=== PATIENT | male | born 1955 | race Caucasian/White ===

== ENCOUNTER → 2017-02-10 | Outpatient (CLI) | payer OTHER ==
[~2017-02-10] MED LIST: IBUP-1027 PO
[2017-02-10 09:49] LABS: CALCIUM 9.1 mg/dL (8.5-10.1); GFR 76.2; POTASSIUM 4.4 mmol/L (3.5-5.1)
[2017-02-10 10:01] LABS: BASO # 0.1 x10^3/uL (0.0-0.2); BASO % 1 % (0-3); EOS % 2 % (0-3); HEMATOCRIT 45.7 % (39.0-53.0); HEMOGLOBIN 15.3 g/dL (13.0-17.5); LYMPH # 2.2 x10^3/uL (1.0-4.8); LYMPH % 30 % (24-48); MEAN CORPUSCULAR HEMOGLOBIN 29 pg (25-35); MEAN CORPUSCULAR HGB CONC 33 g/dL (31-37); MEAN CORPUSCULAR VOLUME 86 fL (79-100); MONO % 10 % (0-9); NEUT % 58 % (31-73); PLATELET COUNT 220 x10^3/uL (140-400); RED BLOOD COUNT 5.32 x10^6/uL (4.30-5.70); RED CELL DISTRIBUTION WIDTH 13.9 % (11.5-14.5); WHITE BLOOD COUNT 7.6 x10^3/uL (4.0-11.0)
[2017-02-10 10:18] LABS: INR 1.1 (0.8-1.1); PROTHROMBIN TIME PATIENT 13.7 SEC (11.7-14.0)
[2017-02-10 11:02] LABS: BILIRUBIN,URINE NEGATIVE (NEG); GLUCOSE,URINE NEGATIVE (NEG); NITRITE,URINE NEGATIVE (NEG); PH,URINE 5.5; PROTEIN,URINE 30 mg/dL (NEG-TRACE); UROBILINOGEN,URINE 0.2 mg/dL (0.2 mg/dL)
[2017-02-10 11:14] LABS: BACTERIA,URINE 0 /HPF (0-FEW); RBC,URINE 0 /HPF (0-2); WBC,URINE 0 /HPF (0-4)
--- NOTE | 2017-02-10 12:34 | EKG ---
[facility] [address] [place] [address] Test Date: 2017-02-10 Test Time: 12:23:21 Pat Name: BIN VELOZ Department: Room: Gender: M Puncher: JOSUÉ : 1955 Requested By: MATY BREEN Order Number: [id number] Reading MD: Becky Chan Measurements Intervals Novelty Rate: 50 P: 37 VT: 170 QRS: 24 QRSD: 88 T: -6 QT: 444 QTc: 407 Interpretive Statements SINUS RHYTHM INCOMPLETE RIGHT BUNDLE BRANCH BLOCK T ABNORMALITY IN INFERIOR LEADS ABNORMAL ECG Electronically Signed On 02-11-2017 12:13:05 CDT by Becky Chan
--- NOTE | 2017-02-10 13:50 | RAD ---
Indication preop. Anticipated knee replacement. Protocol study. Frontal and lateral views of the chest were obtained. No prior imaging is available. Inspiratory effort is slightly suboptimal. This may be a function of patient body habitus. Heart size, given the level of inspiratory effort, is within normal limits. Acute parenchymal infiltrate is not seen. Significant pleural fluid is not present and there is no pneumothorax. IMPRESSION: No acute finding apparent in the chest
== END | disposition home or self-care (01) ==
LOC: SURGPAT 13:25
PROVIDERS: ATTEND Orthopaedic Surgery
DX: Z01.818 Encounter for other preprocedural examination (principal); R79.89 Other specified abnormal findings of blood chemistry
CPT/HCPCS: 36415; 71020; 80048; 81001; 82040; 85025; 85610; 85651; 85730; 87641; 93005

== ENCOUNTER 2017-03-03 05:32 | Inpatient (IN) | payer OTHER ==
--- NOTE | 2017-03-02 13:37 | PDOC1 ---
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 He has a history of medial meniscectomy in March [address] Parson in [place]. He states he was doing well until he fell down the stairs in June and has had progressively worsening pain since then, which he describes as a dull ache with intermittent sharp pains. Past Medical History Past Medical History groin infection Past Surgical History Past Surgical History right knee scope with medial meniscectomy 03/2016 Family History Family History: No Significant Social History Smoke: No ALCOHOL: none Drugs: None Current Medications Current Medications Current Medications Morphine Sulfate 5 mg/Ketorolac Tromethamine 30 mg/Ropivacaine 60 ml/ Epinephrine HCl 0.5 mg/Sodium Chloride 100 ml @ 100 mls/hr 1X PERIOP ONCE INT ART ; Start 03/03/17 at 06:00; Stop 03/03/17 at 06:59 Ondansetron HCl (Zofran) 4 mg PRN Q6HRS PRN IV NAUSEA/VOMITING; Start 03/03/17 at 07:00; Stop 03/04/17 at 06:59 Fentanyl Citrate (Fentanyl 2ml Vial) 25 mcg PRN Q5MIN PRN IV MILD PAIN; Start 03/03/17 at 07:00; Stop 03/04/17 at 06:59 Fentanyl Citrate (Fentanyl 2ml Vial) 50 mcg PRN Q5MIN PRN IV MODERATE PAIN; Start 03/03/17 at 07:00; Stop 03/04/17 at 06:59 Morphine Sulfate 1 mg PRN Q10MIN PRN IV SEVERE PAIN; Start 03/03/17 at 07:00; Stop 03/04/17 at 06:59 Ringer's Solution 1,000 ml @ 30 mls/hr Q24H IV ; Start 03/03/17 at 07:00; Stop 03/03/17 at 18:59 Lidocaine HCl (Xylocaine-Mpf 1% Vial) 2 ml PRN 1X PRN ID IV START; Start at 07:00; Stop 03/04/17 at 06:59 Hydromorphone HCl (Dilaudid) 0.5 mg PRN Q10MIN PRN IV SEV PAIN, Second choice; Start 03/03/17 at 07:00; Stop 03/04/17 at 06:59 Prochlorperazine Edisylate (Compazine) 5 mg PACU PRN PRN IV NAUSEA, MRX1; Start 03/03/17 at 07:00; Stop 03/04/17 at 06:59 Active Scripts Active Reported Ibuprofen 400 Mg Tablet 400 Mg PO PRN Q6HRS PRN Allergies Allergies: Coded Allergies: Penicillins (Verified Allergy, Intermediate, Unknown, 02/06/17) Physical Exam General: Alert, Oriented X3, Cooperative, No acute distress HEENT: Atraumatic, EOMI Lungs: Normal air movement Heart: RRR Abdomen: Soft Extremities: No clubbing, No cyanosis, Normal pulses, Other (RIGHT KNEE: mildly antalgic gait. There is trace varus alignment. No masses. No detectable effusion. Tenderness on the medial and lateral joint lines. Range of motion is 5 -115 degrees. There is crepitus with range of motion, and pain at the extremes of motion. The knee is stable to varus and valgus stress without subluxation or laxity. Muscle strength is normal (5/5) for quadriceps and hamstrings, and muscle tone is normal. The skin is normal with no scars, rashes, lesions or ulcers. Light touch sensation is intact. No edema and no varicosities. Dorsalis pedis pulse is intact and capillary refill is normalLEFT KNEE: trace varus alignment. no masses and no effusion. No tenderness to palpation. Range of motion is 0-125 degrees, without crepitus or pain at the extremes of motion. The knee is stable to varus and valgus stress without subluxation or laxity. Muscle strength is normal (5/5) for quadriceps and hamstrings, and muscle tone is normal. The skin is normal with no scars, rashes, lesions or ulcers. Light touch sensation is intact. No edema and no varicosities. Dorsalis pedis pulse is intact and capillary refill is normal. ) Skin: No rashes, No breakdown, No significant lesion Neuro: Normal speech, Sensation intact Psych/Mental Status: Mental status NL, Mood NL Images Images IMAGING REPORT Joint survey, hips knees and ankles Clinical information: Preoperative for total knee arthroplasty Comparison: None. Findings Bones: The angle between the right hip-ankle mechanical axis and the femoral shaft is 5. The angle between the left hip-ankle mechanical axis and the femoral shaft is 5 . The mechanical axis crosses medial to the center of the right knee indicating varus alignment. The mechanical axis slightly medial to the center of the left knee indicating proper mechanical alignment. Joints: There is narrowing of the right knee joint medially. The left knee joint appears normal. The hips and ankles show minimal degenerative changes. Soft tissue: Normal. Impression: Varus alignment of the right knee and left knee. The difference between the mechanical axis and femoral shaft anatomic axis is 5 bilaterally. IMAGING REPORT 45 PA weightbearing view of both knees, lateral, and patella view of the right knee. Clinical information: Chronic right knee pain. Her arthroscopy. Comparison: None. Findings Bones: There is medial joint space narrowing of the right knee with osteophytic lipping. These are Kellgren David grade 2 osteoarthritis changes of the right knee. The left knee has doubtful narrowing or lipping. Joints: Medial joint space narrowing right knee Soft tissue: Normal. Impression: Osteoarthritis of the right knee, mild/moderate VTE Prophylaxis Ordered VTE Prophylaxis Devices: Yes VTE Pharmacological Prophylaxi: Yes Assessment/Plan Assessment/Plan Right knee osteoarthritis pain. Based on his symptoms Dr. Phillips thinks that total knee replacement would give him a better outcome than arthroscopic surgery. We discussed the potential risks of infection, neurovascular injury, bleeding, blood clots, need for revision surgery, or other potential surgical or anesthetic complications. He would like to proceed with surgery in February. ALEXANDER MACHADO Mar 02, 2017 13:37
[~2017-03-03] VITALS: Ht 180.3 cm; Wt 119.3 kg
[2017-03-03] VITALS (8 sets, daily range): BP systolic 95–140; BP diastolic 51–78
[2017-03-03] MEDS ORDERED: CLINDAMYCIN 900MG PREMIX 50 ML IV PRN (06:00)
[2017-03-03] MEDS ORDERED: HYDROcodone/APAP 7.5/325MG 1 TAB TABLET PO PRN ×2 (06:00→10:00)
[2017-03-03] MEDS ORDERED: TRANEXAMIC ACID 1,000 MG in IV NS 50ML -- 1ST BAG INJ ONE (06:00)
[2017-03-03] MEDS ORDERED: MORPHINE SULFATE 5 MG, KETOROLAC 30 MG, ROPIVacaine 0.5% PF 60 ML, EPINEPHrine 0.5 MG i... INT ART ONE ×5 (06:00)
[2017-03-03] MEDS ORDERED: CELECOXIB 200 MG CAPSULE. PO PRN (06:00)
[2017-03-03] MEDS ORDERED: CELE400C PO (06:11)
[2017-03-03] MEDS ORDERED: LIDOCAINE 2% PF Vial for OR 5 ML VIAL. ONE (06:34)
[2017-03-03] MEDS ORDERED: PROPOFOL 20 ML IV ONE (06:34)
[2017-03-03] MEDS ORDERED: fentaNYL PF VIAL 100 MCG/2 ML VIAL ONE ×2 (06:35→08:37)
[2017-03-03] MEDS ORDERED: ONDANSETRON PF 4 MG/2 ML VIAL. ONE (06:35)
[2017-03-03] MEDS ORDERED: VANCOMYCIN 1 GM VIAL. ONE (06:54)
[2017-03-03] MEDS ORDERED: IV RINGERS,LACTATED 1000ML 1,000 ML IV SCH (07:00)
[2017-03-03] MEDS ORDERED: PROCHLORPERAZINE 10 MG/2 ML VIAL. IV PRN ×2 (07:00→10:00)
[2017-03-03] MEDS ORDERED: ONDANSETRON PF 4 MG/2 ML VIAL. IV PRN (07:00)
[2017-03-03] MEDS ORDERED: LIDOCAINE 1% PF 2 ML VIAL. ID PRN (07:00)
[2017-03-03] MEDS ORDERED: MORPHINE SULFATE 4 MG/ML DISP.SYRIN. IV PRN ×4 (07:00→10:00)
[2017-03-03] MEDS ORDERED: HYDROmorphone 2 MG/ML VIAL IV PRN (07:00)
[2017-03-03] MEDS ORDERED: fentaNYL PF VIAL 100 MCG/2 ML VIAL IV PRN ×3 (07:00→10:00)
[2017-03-03] MEDS ORDERED: CLINDAMYCIN 600MG PREMIX 0 ML IV ONE (07:02)
[2017-03-03] MEDS ORDERED: MIDAZOLAM HCL/PF 2 MG/2 ML VIAL. ONE (07:04)
[2017-03-03] MEDS ORDERED: DEXAMETHASONE SOD PHOS 20 MG/5 ML VIAL. ONE (07:38)
[2017-03-03] MEDS ORDERED: ePHEDrine PF IN SALINE 50 MG/5 ML DISP.SYRIN IV ONE (07:52)
[2017-03-03] MEDS ORDERED: TRANEXAMIC ACID 1,000 MG in IV NS 50ML -- 2ND BAG INJ ONE (08:00)
[2017-03-03] MEDS ORDERED: GLYCOPYRROLATE 1 MG/5 ML VIAL. ONE (08:46)
[2017-03-03] MEDS ORDERED: DESFLURANE > 120 MINUTES IH ONE (09:31)
--- NOTE | 2017-03-03 09:31 | PDOC4 ---
Operative Note Operative Note Date of Procedure: March 03, 2017 Pre-Op Diagnosis: Osteoarthritis right knee Post-Op Diagnosis: Osteoarthritis right knee Procedure: right total knee arthroplasty Surgeon: Maty Phillips MD Forestry Workers: Donna Strickland PA-C Anesthesia: General EBL: 100 mL Specimens Obtained: right knee bone and soft tissue Complications: none Implant Company: [employer] Drains: Hemovac plus pain catheter Tourniquet time: 60 Minutes Tourniquet Pressure: 350 mm Hg Indications for Procedure: Arthritis pain unrelieved by nonoperative management. Findings: osteoarthritis with full thickness cartilage loss at the medial tibiofemoral joint, and the lateral patellofemoral joint Implants used: Size 6 right bicruciate stabilized Journey II BCS Oxinium femoral component, size 6 right Journey nonporous tibial baseplate, size 5-6 12 mm right Journey II BCS XLPE articular insert, 35 mm oval Mindi II resurfacing patellar component Procedure in Detail: The patient was identified in the preoperative holding area, and the correct right lower extremity was marked by me. The patient was taken to the operating room where the patient was anesthetized by the Department of Anesthesia. Preoperative antibiotics were given intravenously. Tranexamic acid 1 g was given intravenously for intraoperative hemostasis. A "time-out" procedure was performed. The patient was positioned supine on the operative table with a tourniquet on the upper right thigh. The right lower limb was thoroughly prepped and draped in sterile fashion. An impervious stockinet and adhesive drape were used such that the skin was entirely covered. An Toscano leg brown was used. The operating team wore personal exhaust-ventilated hoods. The limb was elevated to exsanguinate it, and the tourniquet was inflated.. A midline skin incision was made with a scalpel using the patella and tibial tubercle as landmarks. Electrocautery was used for hemostasis. My assistant kitchen manager used rake retractors. A medial parapatellar arthrotomy incision was used with extension into the distal quadriceps tendon. The patella was retracted laterally and Hohmann retractors were now used by my assistant kitchen manager. Excess synovium, the menisci, and the cruciate ligaments were resected sharply. The patella was assessed and excess synovium and osteophytes around the patellar articulation were removed. The patella was measured with a caliper, cut freehand with a saw using caliper measurements, sized, and then drilled for an oval three-pegged patella component. Periarticular injection was used in the suprapatellar pouch and distal quadriceps muscle. Whitesides's line was assessed on the femur. An intra-medullary 5 degree cutting guide was pinned to the femur, and a distal femoral cut was made with an oscillating saw. No additional distal femoral resection was required.My assistant kitchen manager held Hohmann retractors and an [facility] retractor to protect the medial and lateral collateral ligaments, the patellar tendon, the skin and the other soft tissues. An anterior referencing guide was applied with external rotation of 5 to match Whitesides line. A 5-in-1 Journey II cutting guide was then applied and pinned to the femur. The posterior, anterior, and all chamfer cuts were made with the oscillating saw. An extramedullary guide was pinned to the tibia and rotational alignment and the planned resection thickness assessed. An external alignment brian was used to verify the planned cut in the varus-valgus plane and regarding posterior slope referencing the tibial tubercle, the tibial shaft, the ankle joint, and the second metatarsal. The upper tibia was cut made with an oscillating saw. My assistant kitchen manager held Hohmann retractors and a posterior cruciate ligament retractor to protect the medial and lateral collateral ligaments, the patellar tendon, the skin, the peroneal nerve and the other soft tissues. The upper tibia was sized with a trial baseplate. The posterior compartment was cleared of osteophytes and loose bodies, and posterior capsule released. Camila-articular injection was used in the posterior compartment. The box cut for a posterior stabilized component was made. A preliminary reduction was performed with a trial femur, trial tibial baseplate and trial polyethylene. Soft-tissue balancing was now performed, and extension and rotation of the alignments was checked using a guide brian in the tibial trial and a guide pin in the femur. No additional releases were required. The stability was assessed using different thicknesses of tibial articular surface to find satisfactory stability and good range of motion. The rotation of the tibial component was marked on the upper tibia. Final trial reduction was now performed verifying patella tracking and tibiofemoral stability and alignment. The tibia preparation was completed with a drill, saw, and fin punch at the previously noted rotation. The final implants were verified and opened. Outer gloves were changed by the operating team. The bone cuts were washed thoroughly with the [place] InterPulse device and dried. Two packages of Barbour + Nephew Rally HV bone cement were mixed in powdered form with 1 gm of Vancomycin, then vacuum-mixed with the monomer, and placed into a cement gun. The cut surfaces of the bone were thoroughly dried with Yin-tip suction and with laparotomy sponges for cement interdigitation. The final components were cemented into place. The knee was kept at full extension while the cement hardened, and excess cement was removed. Tranexamic acid 1 g was redosed intravenously for additional intraoperative hemostasis. A final periarticular injection was used for pain relief. The tourniquet was released, and electrocautery was used for hemostasis. A final check of [id number] and stability was made, and the polyethylene implant final size was chosen. The polyethylene implant was secured to the tibial baseplate, and the knee was reduced a final time. Thorough irrigation was used. Hemovac and pain catheter were used.The arthrotomy was closed with interrupted epclsh-du-htive #1 PDS suture. The arthrotomy incision was then run with #1 STRATAFIX Symmetric PDS Plus Knotless suture. The subcutaneous tissues were closed with #2-0 Vicryl by my assistant kitchen manager. The skin was approximated with STRATAFIX Spiral MONOCRYL Plus Knotless suture by my assistant kitchen manager. The skin incision was then covered and reinforced with Dermabond Prineo mesh skin closure dressing.A bulky sterile gauze dressing was applied. Needle and sponge counts were correct. There were no apparent complications. The patient returned to the recovery room in stable condition. MATY PHILLIPS MD Mar 03, 2017 09:31
[2017-03-03] MEDS ORDERED: METOCLOPRAMIDE HCL 10 MG/2 ML VIAL. IV PRN (10:00)
[2017-03-03] MEDS ORDERED: ZOLPIDEM 5 MG TABLET. PO PRN (10:00)
[2017-03-03] MEDS ORDERED: ACETAMINOPHEN 325 MG TABLET. PO PRN (10:00)
[2017-03-03] MEDS ORDERED: MORPHINE SULFATE 10 MG/ML VIAL. IV PRN (10:00)
[2017-03-03] MEDS ORDERED: CALCIUM CARBONATE 500 MG TAB.CHEW PO PRN (10:00)
[2017-03-03] MEDS ORDERED: PROCHLORPERAZINE 5 MG TABLET. PO PRN (10:00)
[2017-03-03] MEDS ORDERED: oxyCODONE/APAP 5/325 1 TAB TABLET PO PRN (10:00)
[2017-03-03] MEDS ORDERED: oxyCODONE/APAP 7.5/325 1 TAB TABLET PO PRN (10:00)
[2017-03-03] MEDS ORDERED: 0.9 % SODIUM CHLORIDE 10 ML DISP.SYRIN. IV PRN (10:00)
[2017-03-03] MEDS ORDERED: DEXTROSE 50% 25 GM / 50ML DISP.SYRIN. IV PRN (10:00)
[2017-03-03] MEDS ORDERED: diphenhydrAMINE 50 MG/ML VIAL IV PRN (10:00)
[2017-03-03] MEDS ORDERED: traMADol 50 MG TABLET PO PRN ×2 (10:00)
[2017-03-03] MEDS: fentaNYL PF VIAL 100 MCG/2 ML VIAL IV PRN ×2 (10:11→10:25)
--- NOTE | 2017-03-03 10:12 | RAD ---
EXAM: Right knee, 2 views. HISTORY: Arthroplasty. COMPARISON: None. FINDINGS: Frontal and lateral views of the right knee are obtained. There is a right knee arthroplasty in expected position. There is surrounding soft tissue gas, joint fluid and a surgical drain due to recent surgery. IMPRESSION: Right knee arthroplasty in expected position.
[2017-03-03] MEDS: CLINDAMYCIN 900MG PREMIX 50 ML IV SCH ×2 (12:50→19:37)
[2017-03-03] MEDS: KETOROLAC 30 MG, BUPIVACAINE MPF 0.25% 20 ML, EPINEPHrine 0.5 MG in TOTAL VOLUME SYRING... INT ART SCH (16:52)
[2017-03-03] MEDS: IV DEXTROSE 5 %-0.45 % NACL 1,000 ML IV SCH ×2 (16:53→22:00)
[2017-03-03] MEDS: FERROUS SULFATE 325 MG TABLET. PO SCH (16:54)
[2017-03-03] MEDS: ASPIRIN ENTERIC COATED 325 MG TABLET.DR. PO SCH (21:39)
[2017-03-03] MEDS: CELECOXIB 200 MG CAPSULE. PO SCH (21:39)
[2017-03-04] MEDS: CLINDAMYCIN 900MG PREMIX 50 ML IV SCH (02:09)
[2017-03-04 02:30] VITALS: BP 129/71
[2017-03-04 05:27] LABS: HEMATOCRIT 35.1 % (39.0-53.0)
[2017-03-04] MEDS: KETOROLAC 30 MG, BUPIVACAINE MPF 0.25% 20 ML, EPINEPHrine 0.5 MG in TOTAL VOLUME SYRING... INT ART SCH (05:51)
[2017-03-04] MEDS ORDERED: MAGNESIUM HYDROXIDE 2,400 MG/30 ML ORAL.SUSP. PO PRN (06:00)
[2017-03-04 06:07] VITALS: BP 107/64
[2017-03-04] MEDS: IV DEXTROSE 5 %-0.45 % NACL 1,000 ML IV SCH (08:00)
[2017-03-04] MEDS: CELECOXIB 200 MG CAPSULE. PO SCH ×2 (09:08→21:24)
[2017-03-04] MEDS: MULTIVITAMIN with MINERAL TABLET. PO SCH (09:08)
[2017-03-04] MEDS: SENNOSIDES/DOCUSATE 8.6/50MG TABLET. PO SCH (09:08)
[2017-03-04] MEDS: ASPIRIN ENTERIC COATED 325 MG TABLET.DR. PO SCH ×2 (09:08→21:24)
[2017-03-04] MEDS: FERROUS SULFATE 325 MG TABLET. PO SCH ×2 (09:09→17:13)
--- NOTE | 2017-03-04 11:21 | PDOC ---
PROGRESS NOTES Subjective Subjective No complaints. States he is feeling better today than before surgery. Objective Vital Signs Vital Signs Date Time Temp Pulse Resp B/P (MAP) Pulse Ox O2 Delivery O2 Flow Rate FiO2 03/04/17 08:00 Room Air 03/04/17 06:07 97.8 66 20 107/64 (78) 93 97.8 03/03/17 12:15 2.0 Physical Exam Dressing dry. Pain catheter and Hemovac were pulled out in the night. Good dorsiflexion and plantarflexion of the foot with no evidence of neurovascular injury or DVT. Calves are soft and non-tender. Negative Homans. Peripheral pulses and light touch sensation intact. Labs Laboratory Tests Test 03/04/17 05:05 Hemoglobin 12.0 g/dL (13.0-17.5) Hematocrit 35.1 % (39.0-53.0) Mean Corpuscular Hemoglobin Concent 34 g/dL (31-37) Laboratory Tests Test 03/04/17 05:05 Hemoglobin 12.0 g/dL (13.0-17.5) Hematocrit 35.1 % (39.0-53.0) Mean Corpuscular Hemoglobin Concent 34 g/dL (31-37) Imaging Postoperative x-rays reviewed by me, showing satisfactory total knee replacement , with no apparent complications. Assessment Assessment POD #1 TKA Problems: Plan Plan of Care Continue POC including DVT prophylaxis and physical therapy. Dr. Phillips saw and examined the patient as well. ALEXANDER MACHADO Mar 04, 2017 11:21
[2017-03-04] MEDS ORDERED: INFLUENZA VAX SCREEN BY RX. MC ONE (11:30)
[2017-03-04] MEDS ORDERED: BISACODYL 10 MG SUPP.RECT. PR PRN (16:00)
[2017-03-04] MEDS ORDERED: TRANEXAMIC ACID 1,000 MG in IV NORMAL SALINE 50ML 50 ML IV ONE (17:00)
[2017-03-04 18:36] VITALS: BP 120/70
[2017-03-04] MEDS: HYDROcodone/APAP 10/325 1 TAB TABLET PO PRN (21:24)
[2017-03-05] MEDS: HYDROcodone/APAP 10/325 1 TAB TABLET PO PRN (01:28)
[2017-03-05 05:00] VITALS: BP 111/72
[2017-03-05 05:04] LABS: HEMATOCRIT 33.7 % (39.0-53.0); HEMOGLOBIN 11.4 g/dL (13.0-17.5)
[2017-03-05] MEDS: CELECOXIB 200 MG CAPSULE. PO SCH (08:01)
[2017-03-05] MEDS: ASPIRIN ENTERIC COATED 325 MG TABLET.DR. PO SCH (08:02)
[2017-03-05] MEDS: SENNOSIDES/DOCUSATE 8.6/50MG TABLET. PO SCH (08:02)
[2017-03-05] MEDS: MULTIVITAMIN with MINERAL TABLET. PO SCH (08:02)
[2017-03-05] MEDS: FERROUS SULFATE 325 MG TABLET. PO SCH (08:02)
[2017-03-05] MEDS ORDERED: FLU VACC QS2017-18 (36MOS+)/PF 0.5 ML SYRINGE. VAX IM ONE (09:00)
--- NOTE | 2017-03-05 10:08 | PDOC ---
PROGRESS NOTES Subjective Subjective Better today. Yesterday afternoon RN, Kayla, said incision was actively bleeding so 1g IV TXA was given and drainage has stopped. Objective Vital Signs Vital Signs Date Time Temp Pulse Resp B/P (MAP) Pulse Ox O2 Delivery O2 Flow Rate FiO2 03/05/17 05:00 98.3 63 18 111/72 (85) 95 Room Air 98.3 03/03/17 12:15 2.0 Physical Exam Sitting in recliner with legs elevated. Prineo mesh intact. Quarter-size amount of bloody drainage on ABD. Calf soft and nonteder with a negative Wilner's sign. Good dorsiflexion and plantarflexion with no evidence of neurovascular injury. Peripheral pulses and light touch sensation intact. Labs Laboratory Tests Test 03/04/17 05:05 03/04/17 17:05 03/05/17 04:48 Hemoglobin 12.0 g/dL (13.0-17.5) 12.4 g/dL (13.0-17.5) 11.4 g/dL (13.0-17.5) Hematocrit 35.1 % (39.0-53.0) 33.7 % (39.0-53.0) Mean Corpuscular Hemoglobin Concent 34 g/dL (31-37) 34 g/dL (31-37) Laboratory Tests Test 03/04/17 17:05 03/05/17 04:48 Hemoglobin 12.4 g/dL (13.0-17.5) 11.4 g/dL (13.0-17.5) Hematocrit 33.7 % (39.0-53.0) Mean Corpuscular Hemoglobin Concent 34 g/dL (31-37) Assessment Assessment POD #2 right TKA Problems: Plan Plan of Care Continue POC including DVT ppx and therapy. Discharge to home this afternoon with dressing change supplies. F/u in 10-14 days. ALEXANDER MACHADO Mar 05, 2017 10:08
--- NOTE | 2017-03-05 10:13 | PDOC3 ---
Discharge Summary Visit Information Date of Admission: Mar 03, 2017 Date of Discharge: Mar 05, 2017 Admitting Diagnosis: right knee osteoarthritis pain Brief Hospital Course Allergies Allergies Coded Allergies Type Severity Reaction Last Updated Verified Penicillins Allergy Intermediate 03/05/17 Yes Vital Signs Vital Signs Date Time Temp Pulse Resp B/P (MAP) Pulse Ox O2 Delivery O2 Flow Rate FiO2 03/05/17 05:00 98.3 63 18 111/72 (85) 95 Room Air 98.3 03/03/17 12:15 2.0 Lab Results Laboratory Tests Test 03/04/17 05:05 03/04/17 17:05 03/05/17 04:48 Hemoglobin 12.0 g/dL (13.0-17.5) 12.4 g/dL (13.0-17.5) 11.4 g/dL (13.0-17.5) Hematocrit 35.1 % (39.0-53.0) 33.7 % (39.0-53.0) Mean Corpuscular Hemoglobin Concent 34 g/dL (31-37) 34 g/dL (31-37) Laboratory Tests Test 03/04/17 17:05 03/05/17 04:48 Hemoglobin 12.4 g/dL (13.0-17.5) 11.4 g/dL (13.0-17.5) Hematocrit 33.7 % (39.0-53.0) Mean Corpuscular Hemoglobin Concent 34 g/dL (31-37) Brief Hospital Course 61 year old male who presented with right knee osteoarthritis, for elective total knee arthroplasty. The patient underwent right total knee arthroplasty under general anesthesia the day of admission. Perioperative antibiotics and DVT prophylaxis were used. Postoperatively physical therapy and case management were consulted. The patient progressed and is stable for discharge. Discharge Information Condition at Discharge: Stable Follow Up: Weeks (2) Disposition/Orders: D/C to Home Scheduled Celecoxib (Celebrex), 400 MG PO x1 time, (Reported) Scheduled PRN Ibuprofen (Ibuprofen), 400 MG PO PRN Q6HRS PRN for INFLAMMATION, (Reported) Patient Instructions Patient Instructions Patient Instructions Continue to WBAT with walker. Change dressing daily using ABD pads and cleansing with chlorhexidine swabs. F/U with [facility] in 10-14 days. Call for appointment. Physical therapy for TKA Continue DVT prophylaxis with aspirin 325mg twice daily. ALEXANDER MACHADO Mar 05, 2017 10:13
--- NOTE | 2017-03-05 13:38 | PATHOLOGY ---
PATHOLOGY REPORT * * * * * * * * FINAL DIAGNOSIS: Bone, right knee, removal: - Degenerative osteoarthritis, mild. (SKM:pit; 03/05/2017) REPORT ELECTRONICALLY SIGNED BY: Mat Reid M.D. DATE/TIME: 03/05/2017 13:37 * * * * * * * * GROSS PATHOLOGY: Received in formalin labeled "Bin Mora, right knee bone and tissue," are multiple segments of bone, including tibial plateau, measuring 14.1 x 13.3 x 2.1 cm in aggregate dimensions admixed with soft tissue; meniscus is present. Upon extensive sectioning, eburnation of the articulating surfaces is not grossly evident. Wireline Field Operator sections of bone and soft tissue are submitted in cassette A1, following decalcification. INITIAL CPT CODE(S): A; 20953, 89116 Professional services performed [place] [facility] [place] [address] Technical services performed by [facility] at [address] [place] [address], [facility] [address] [place] [address]. Chase Rawls, fax: SPECIMEN(S) RECEIVED: A.Right knee bone and tissue CLINICAL HISTORY: Right knee osteoarthritis, pain PATIENT: BIN MORA /AGE: 2 1955 (Age: 61) PATIENT #: [id number] ALT CASE #: SPECIMEN COLLECTION DATE: 03/03/2017 SPECIMEN RECEIVED DATE: 03/03/2017 [facility] - [address] [place] [address] - PHONE: [phone] * * * END OF REPORT * * *
[2017-03-05 15:37] VITALS: BP 133/65
== END 2017-03-05 15:46 | disposition home or self-care (01) | DRG 470 ==
LOC: OPSVCIP 05:32 → EDUNIT# 07:10 → 4 SOUTHEST 10:51
PROVIDERS: ADMIT Orthopaedic Surgery; ATTEND Orthopaedic Surgery
PROC: 0SRC0J9 Replacement of Right Knee Joint with Synthetic Substitute, Cemented, Open Approach (ICD-10-PCS; principal; 2017-03-03 07:10)
DX: M17.11 Unilateral primary osteoarthritis, right knee (principal); Z88.0 Allergy status to penicillin
CPT/HCPCS: 36415; 73560; 85014; 85018; 86850; 86900; 86901; 88305; 88311; 90686; C1713; J0171; J1100; J1885; J2250; J2270; J2405; J2704; J2795; J3010; J3370; J3490; J7030; J7120; 97116; 97150; 97530; 97535; C1769; J2001

== ENCOUNTER → 2017-12-16 | Outpatient (CLI) | payer OTHER | END | disposition home or self-care (01) | LOC: KCIC MRI 14:15 | DX: M50.33 Other cervical disc degeneration, cervicothoracic region (principal); M48.02 Spinal stenosis, cervical region; M47.892 Other spondylosis, cervical region; M25.78 Osteophyte, vertebrae | CPT/HCPCS: 72141 ==